=== PATIENT | female | born 1985 | race Caucasian/White ===

== ENCOUNTER → 2017-06-23 | Day surgery (SDC) | payer BC ==
[~2017-06-23] MED LIST: ABSORICA30 MG PO; AXERT12.5 MG PO; CAMBIA50 MG PO; DEXAMETHASONE4 MG PO; MULTI-DAY VITA1 EACH; PROBIOTIC1 EAC3 PO; PROTONIX PO; TOPAMAX PO; VITAMIN D35000 UNI1 PO; ZYRTEC10 M2 PO
--- NOTE | ~2017-06-23 | OR ---
Unit #: [id number] #: [id number] Patient: LEN HAGAN [id number] [address] [address] [id number] O MR#: [id number] NAME: LEN HAGAN ROOM: Date of Procedure: 06/23/2017 Admission Date: 06/23/2017 Surgeon: Jonah Carbajal III, M.D. : 1985 Attending Physician: Jonah Carbajal III, M.D. Primary Care Physician: Dexter Horn Aprn OPERATIVE REPORT PREOPERATIVE DIAGNOSIS Chronic cholecystitis. POSTOPERATIVE DIAGNOSIS Chronic cholecystitis. PROCEDURE PERFORMED Laparoscopic cholecystectomy. STAINED GLASS GLAZIER HELPER Fer Hudson M.D. SPECIMENS Gallbladder to Pathology. COMPLICATIONS None apparent. ESTIMATED BLOOD LOSS Minimal. ANESTHESIA General endotracheal tube anesthesia. INDICATIONS FOR PROCEDURE This is a 32-year-old lady, who has been having some typical symptoms of biliary colic and had an abnormal HIDA scan with a low ejection fraction. She is here today for laparoscopic cholecystectomy. DESCRIPTION OF PROCEDURE After consent was obtained, the patient was brought to the operating room and placed in the supine position. General anesthetic was administered and her abdomen was prepped and draped in standard surgical fashion. I made a 5-mm incision in the right upper quadrant. I used an Optiview to enter into the peritoneal cavity without any difficulty. CO2 pneumoperitoneum was then established. Next, a second 5-mm port was placed in the supraumbilical region and an 11-mm port was placed in the midepigastric region and a third 5-mm port was placed in the right lateral subcostal region. She had a nondistended gallbladder. There were some adhesions to the mid body of the gallbladder that were carefully taken down. I then retracted the gallbladder superiorly and laterally. I Unit #: [id number] #: [id number] Patient: LEN HAGAN dissected out the cystic duct and cystic artery and after these were carefully identified, I placed two clips proximally and one clip distally along both structures and then they were divided. The gallbladder was then taken off the liver bed using the hook cautery. The gallbladder was extracted through the epigastric port site without dilatation of the fascia. I had excellent hemostasis and all needle, sponge, and instrument counts were correct x2. I then removed all the trocars and released the pneumoperitoneum. All the incisions were injected with 0.25% plain Marcaine and I reapproximated the skin edges with interrupted 4-0 Vicryl subcuticular suture. Steri-Strips were then applied. The patient tolerated the procedure without any problems and returned to the recovery room in stable condition. Dictated by... Jonah Carbajal III, M.D. VCL/nelia TD: 06/23/2017 11:12 JOB #: [id number] OPERATIVE REPORT Page 1 of 1 X Jonah Carbajal III, MD X PROCEDURE OPERATIVE NOTE
== END | disposition home or self-care (01) ==
LOC: CSUR 06:33
DX: K80.10 Calculus of gallbladder with chronic cholecystitis without obstruction (principal); R59.9 Enlarged lymph nodes, unspecified; K82.8 Other specified diseases of gallbladder; K21.9 Gastro-esophageal reflux disease without esophagitis; K58.9 Irritable bowel syndrome, unspecified; Z88.8 Allergy status to other drugs, medicaments and biological substances; Z79.899 Other long term (current) drug therapy; Z98.818 Other dental procedure status; Z90.710 Acquired absence of both cervix and uterus; Z97.5 Presence of (intrauterine) contraceptive device
CPT/HCPCS: 88304; J0330; J1100; J1885; J2250; J2405; J2710; J3010